=== PATIENT | female | born 1985 | race Two or more races ===

== ENCOUNTER 2018-04-26 13:34 | Emergency (ER) | payer SELFPAY ==
--- NOTE | 2018-04-26 13:58 | NUR ---
CALLED NAME, NOT IN A WAITING ROOM.
--- NOTE | 2018-04-26 15:39 | NUR ---
CALLED FOR THE THIRD TIME. NOT IN WAITING AREA.
== END 2018-04-26 15:40 | disposition left against medical advice (07) ==
LOC: ER 13:49
DX: Z53.21 Procedure and treatment not carried out due to patient leaving prior to being seen by health care provider (principal)